=== PATIENT | male | born 1960 | race Caucasian/White ===

== ENCOUNTER 2018-11-14 16:57 | Day surgery (SDC) | payer MEDICARE, MEDICAID ==
[2018-11-14] MEDS ORDERED: SODIUM CHLORIDE 0.9% FLUSH 10 ML SOL IV PRN ×2 (17:00→17:31)
[2018-11-14] MEDS ORDERED: POLYETHYLENE GLYCOL 17 GM/1 TBS PDS ONE ×3 (17:10→17:14)
[2018-11-14] MEDS: POLYETHYLENE GLYCOL 17 GM/1 TBS PDS PO SCH (18:00)
[2018-11-14] MEDS ORDERED: POLYETHYLENE GLYCOL 17 GM/1 TBS PDS PO SCH (18:00)
[2018-11-14] MEDS ORDERED: TAMSULOSIN HYDROCHLORIDE 0.4 MG CAP PO SCH (22:45)
[2018-11-15] MEDS: POLYETHYLENE GLYCOL 17 GM/1 TBS PDS PO SCH (04:14)
[2018-11-15] MEDS ORDERED: ATENOLOL 25 MG TAB PO SCH (06:30)
[2018-11-15] MEDS ORDERED: RANITIDINE HCL 150 MG TAB PO SCH (06:30)
[2018-11-15] MEDS ORDERED: FUROSEMIDE 40 MG TAB PO SCH (06:30)
[2018-11-15] MEDS ORDERED: ALLOPURINOL 100 MG TAB PO SCH (06:30)
[2018-11-15] MEDS ORDERED: OMEPRAZOLE 20 MG CAPSULE PO SCH (06:30)
[2018-11-15] MEDS ORDERED: CLONIDINE 0.1 MG TAB PO SCH (06:30)
[2018-11-15] MEDS ORDERED: LISINOPRIL 20 MG TAB PO SCH (06:30)
[2018-11-15] MEDS ORDERED: DOCUSATE SODIUM 100 MG SGL PO SCH (09:00)
[2018-11-15] MEDS ORDERED: LACTATED RINGERS 1,000 ML IV ONE ×2 (10:00)
[2018-11-15] MEDS ORDERED: PROPOFOL 500 MG/50 ML EMU IV ONE (12:22)
[2018-11-15] MEDS ORDERED: ATENOLOL 25 MG TAB PO ONE (13:55)
[2018-11-15] MEDS ORDERED: ATENOLOL 25 MG TAB ONE (14:06)
[2018-11-15] MEDS ORDERED: LISINOPRIL 20 MG TAB ONE (14:06)
[2018-11-15 14:20] VITALS: TEMP 97.4
[2018-11-15 16:13] VITALS: RESP 20
[2018-11-15 16:14] VITALS: BP 197/106; PULSE 84; O2SAT 92
== END 2018-11-15 15:25 | disposition home or self-care (01) | DRG 951 ==
LOC: ACUTE CARE 16:57 → UNDOADMOB 16:57 → ACUTE CARE 16:57 → ACUTEOP 16:57 → EDSTATUS 11-15 11:30 → SURG 11-15 15:25
PROVIDERS: ATTEND Surgery
DX: Z12.11 Encounter for screening for malignant neoplasm of colon (principal); Z86.010 Personal history of colon polyps; D12.0 Benign neoplasm of cecum; D37.4 Neoplasm of uncertain behavior of colon
CPT/HCPCS: A9270; A9270-GY; J2704